=== PATIENT | female | born 1945 | race Caucasian/White ===

== ENCOUNTER 2018-09-15 16:56 | Emergency (ER) | payer MEDICARE, MEDICAID ==
[~2018-09-15] VITALS: Ht 147.3 cm; Wt 85.0 kg
[2018-09-15] MEDS ORDERED: VITAD1000 PO (17:16)
[2018-09-15] MEDS ORDERED: SERT50TA12 PO (17:16)
[2018-09-15] MEDS ORDERED: INDA2.5 PO (17:16)
[2018-09-15] MEDS ORDERED: FOLI1 PO (17:16)
[2018-09-15] MEDS ORDERED: KDUR20 PO (17:16)
[2018-09-15] MEDS ORDERED: METH2.5 PO (17:16)
[2018-09-15] MEDS ORDERED: CELE100 PO (17:16)
[2018-09-15] MEDS ORDERED: ASPI81 PO (17:16)
[2018-09-15 17:42] LABS: BASOPHILS % (AUTO) 1.4 % (0.0-2.0); EOSINOPHILS % (AUTO) 3.9 % (1.0-6.0); HEMATOCRIT 41.4 % (36-46); HEMOGLOBIN 13.9 g/dL (12.0-16.0); LYMPHOCYTES # (AUTO) 0.9 K/uL (1.0-4.8); LYMPHOCYTES % (AUTO) 15.2 % (22.0-44.0); MEAN CORPUSCULAR HEMOGLOBIN 26.6 pg (26.0-34.0); MEAN CORPUSCULAR HGB CONC 33.5 G/dL (31.0-37.0); MEAN CORPUSCULAR VOLUME 80 fL (80-100); MONOCYTES # (AUTO) 0.7 K/uL (0.1-1.0); MONOCYTES % (AUTO) 11.3 % (2.0-9.0); NEUTROPHILS # (AUTO) 4.1 K/uL (1.8-7.7); NEUTROPHILS % (AUTO) 68.2 % (40.0-70.0); PLATELET COUNT (AUTO) 191 K/uL (150-450); RED BLOOD CELL COUNT(AUTO) 5.21 MIL/uL (4.00-5.20)
[2018-09-15 18:00] LABS: ALANINE AMINOTRANSFERASE 25 U/L (12-78); ALBUMIN 3.9 g/dL (3.4-5.0); ALKALINE PHOSPHATASE 100 U/L (46-116); AMYLASE 33 U/L (25-115); ANION GAP 6 mmol/L (8-16); ASPARTATE AMINOTRANSFERASE 26 U/L (15-37); BILIRUBIN,TOTAL 0.5 mg/dL (0.1-1.0); CARBON DIOXIDE 33 mmol/L (22-29); CHLORIDE 103 mmol/L (98-107); CREATININE 0.62 mg/dL (0.60-1.30); GLOMERULAR FILTR. RATE CALC > 60 mL/min (>60); GLUCOSE,RANDOM 97 mg/dL (70-110); LIPASE 102 U/L (73-393); POTASSIUM 3.2 mmol/L (3.5-5.1); SODIUM SERUM 142 mmol/L (136-145); TOTAL PROTEIN, SERUM 7.2 g/dL (6.4-8.2)
[2018-09-15 18:27] LABS: UREA NITROGEN, BLOOD 22 mg/dL (7-18)
[2018-09-15] MEDS: ACETAMINOPHEN 500 MG TABLET PO ONE ×2 (19:10→19:16)
[2018-09-15 19:54] VITALS: BP 138/71
== END 2018-09-15 20:41 | disposition home or self-care (01) ==
LOC: EMS 17:00
DX: S39.012A Strain of muscle, fascia and tendon of lower back, initial encounter (principal); S80.01XA Contusion of right knee, initial encounter; S30.0XXA Contusion of lower back and pelvis, initial encounter; M13.862 Other specified arthritis, left knee; M13.861 Other specified arthritis, right knee; G89.29 Other chronic pain; I10 Essential (primary) hypertension; Z88.0 Allergy status to penicillin; Z88.8 Allergy status to other drugs, medicaments and biological substances; Z91.040 Latex allergy status; Z79.82 Long term (current) use of aspirin; V09.9XXA Pedestrian injured in unspecified transport accident, initial encounter; Y93.89 Activity, other specified; Y92.89 Other specified places as the place of occurrence of the external cause; Y99.8 Other external cause status
CPT/HCPCS: 72100; 72170; 72220

== ENCOUNTER 2020-07-31 18:37 | Inpatient (IN) | payer MEDICARE, MEDICAID ==
[~2020-07-31] VITALS: Ht 147.3 cm; Wt 76.9 kg
[~2020-07-31 18:37] MED LIST: ASPI-1450 PO; CELE100 PO; CHOL100018 PO; FOLI-130 PO; INDA2.5 PO; METH2.5 PO; POTA20TA83 PO; SERT-158 PO
[2020-07-31] MEDS ORDERED: IOVERSOL 320 MG/ML 100 ML VIAL ONE (21:29)
[2020-07-31] MEDS ORDERED: SODIUM CHLORIDE 0.9% 100 ML ONE (21:29)
[2020-07-31 21:58] LABS: BASOPHILS % (AUTO) 0.9 % (0.0-2.0); EOSINOPHILS % (AUTO) 1.4 % (1.0-6.0); HEMATOCRIT 40.5 % (36-46); HEMOGLOBIN 13.2 g/dL (12.0-16.0); LYMPHOCYTES # (AUTO) 1.1 K/uL (1.0-4.8); MEAN CORPUSCULAR HEMOGLOBIN 26.4 pg (26.0-34.0); MEAN CORPUSCULAR HGB CONC 32.5 G/dL (31.0-37.0); MEAN CORPUSCULAR VOLUME 81 fL (80-100); MONOCYTES # (AUTO) 0.6 K/uL (0.1-1.0); MONOCYTES % (AUTO) 13.8 % (2.0-9.0); NEUTROPHILS # (AUTO) 2.5 K/uL (1.8-7.7); NEUTROPHILS % (AUTO) 58.9 % (40.0-70.0); PLATELET COUNT (AUTO) 160 K/uL (150-450); RED CELL DISTRIBUTION WIDTH 17.1 % (11.5-14.5)
[2020-07-31 22:12] LABS: INR 1.2 (0.9-1.1); PROTHROMBIN TIME 12.7 SEC (9.4-11.6)
[2020-07-31 22:13] LABS: ALANINE AMINOTRANSFERASE 38 U/L (12-78); ALBUMIN 3.7 g/dL (3.4-5.0); ALKALINE PHOSPHATASE 93 U/L (46-116); ANION GAP 8 mmol/L (8-16); ASPARTATE AMINOTRANSFERASE 38 U/L (15-37); BILIRUBIN,TOTAL 0.7 mg/dL (0.1-1.0); CALCIUM, TOTAL 9.6 mg/dL (8.8-10.5); CARBON DIOXIDE 32 mmol/L (22-29); CHLORIDE 105 mmol/L (98-107); CREATININE 0.56 mg/dL (0.60-1.30); GLUCOSE,RANDOM 89 mg/dL (70-110); SODIUM SERUM 145 mmol/L (136-145); TOTAL PROTEIN, SERUM 7.2 g/dL (6.4-8.2); UREA NITROGEN, BLOOD 16 mg/dL (7-18)
[2020-07-31 22:14] LABS: GLOMERULAR FILTR. RATE CALC > 60 mL/min (>60)
[2020-07-31 22:20] LABS: B-TYPE NATRIURETIC PEPTIDE 27 pg/mL (0-100)
[2020-07-31] MEDS ORDERED: POTASSIUM CHLORIDE 10% 40 MEQ/30 ML LIQUID UDCUP PO ONE (22:45)
[2020-07-31] MEDS ORDERED: VANCOMYCIN HCL 1 GM/D5% WATER 200 ML IV ONE (22:45)
[2020-07-31] MEDS ORDERED: 0.9% SODIUM CHLORIDE 10 ML SYRINGE IVP PRN (22:45)
[2020-07-31] MEDS ORDERED: ACETAMINOPHEN 325 MG TABLET PO PRN (22:45)
[2020-07-31] MEDS ORDERED: ONDANSETRON HCL 4 MG/2 ML VIAL IVP PRN ×2 (22:45→23:00)
[2020-07-31] MEDS ORDERED: POTASSIUM CHLORIDE 20 MEQ ER TABLET PO PRN (23:00)
[2020-07-31] MEDS ORDERED: ZOLPIDEM TARTRATE 5 MG TABLET PO PRN (23:00)
[2020-07-31] MEDS ORDERED: BISACODYL 10 MG RECTAL RECTAL SUPPOSITORY PR PRN (23:00)
[2020-07-31] MEDS ORDERED: POTASSIUM CHL 10 MEQ/WATER 50 ML IV PRN (23:00)
[2020-07-31] MEDS ORDERED: MAGNESIUM HYDROXIDE SUSPENSION 30 ML UDCUP PO PRN (23:00)
[2020-07-31] MEDS ORDERED: HYDROCODONE/ACETAMINOPHEN 5-325 MG TABLET PO PRN (23:00)
[2020-07-31] MEDS ORDERED: MORPHINE SULFATE 2 MG/ML SYRINGE IVP PRN (23:00)
[2020-07-31] MEDS ORDERED: IOVERSOL 350 MG/ML 100 ML VIAL ONE (23:34)
[2020-08-01] MEDS: HEPARIN SODIUM,PORCINE 5,000 UNITS/ML VIAL SQ SCH ×4 (00:55→23:03)
[2020-08-01 01:20] LABS: COVID AG,FIA SOURCE NASOPHARYNGEAL
[2020-08-01 02:09] VITALS: BP 131/72
[2020-08-01 04:12] VITALS: BP 109/68
[2020-08-01 06:07] LABS: BASOPHILS % (AUTO) 1.7 % (0.0-2.0); EOSINOPHILS % (AUTO) 2.8 % (1.0-6.0); HEMATOCRIT 37.9 % (36-46); HEMOGLOBIN 12.1 g/dL (12.0-16.0); LYMPHOCYTES # (AUTO) 0.9 K/uL (1.0-4.8); LYMPHOCYTES % (AUTO) 28.8 % (22.0-44.0); MEAN CORPUSCULAR HEMOGLOBIN 26.6 pg (26.0-34.0); MEAN CORPUSCULAR HGB CONC 31.9 G/dL (31.0-37.0); MEAN CORPUSCULAR VOLUME 83 fL (80-100); MONOCYTES # (AUTO) 0.5 K/uL (0.1-1.0); MONOCYTES % (AUTO) 15.4 % (2.0-9.0); NEUTROPHILS # (AUTO) 1.7 K/uL (1.8-7.7); NEUTROPHILS % (AUTO) 51.3 % (40.0-70.0); PLATELET COUNT (AUTO) 135 K/uL (150-450); RED BLOOD CELL COUNT(AUTO) 4.56 MIL/uL (4.00-5.20); RED CELL DISTRIBUTION WIDTH 17.3 % (11.5-14.5)
[2020-08-01] MEDS ORDERED: SODIUM CHLORIDE 0.9% 500 ML IV ONE ×2 (06:07→06:09)
[2020-08-01 06:48] LABS: ANION GAP 8 mmol/L (8-16); CALCIUM, TOTAL 9.3 mg/dL (8.8-10.5); CARBON DIOXIDE 30 mmol/L (22-29); CHLORIDE 106 mmol/L (98-107); CREATININE 0.43 mg/dL (0.60-1.30); GLUCOSE,RANDOM 101 mg/dL (70-110); POTASSIUM 3.2 mmol/L (3.5-5.1); SODIUM SERUM 144 mmol/L (136-145); UREA NITROGEN, BLOOD 11 mg/dL (7-18)
[2020-08-01 06:49] LABS: GLOMERULAR FILTR. RATE CALC > 60 mL/min (>60)
[2020-08-01] MEDS ORDERED: VANCOMYCIN HCL 750 MG in DEXTROSE 5%-WATER 250 ML IV SCH (07:00)
[2020-08-01 07:30] VITALS: BP 116/66
[2020-08-01] MEDS: ACETAMINOPHEN 325 MG TABLET PO PRN (08:38)
[2020-08-01] MEDS: INDAPAMIDE 2.5 MG TAB PO SCH (08:38)
[2020-08-01] MEDS: PANTOPRAZOLE SODIUM 40 MG DR TABLET PO SCH (08:39)
[2020-08-01] MEDS: CHOLECALCIFEROL (VIT D3) 1,000 UNITS [25 MCG] TABLET PO SCH (08:39)
[2020-08-01] MEDS: FOLIC ACID 1 MG TABLET PO SCH (08:39)
[2020-08-01] MEDS: ASPIRIN 81 MG CHEWABLE TABLET PO SCH (08:39)
[2020-08-01] MEDS: DOCUSATE SODIUM 100 MG CAPSULE PO SCH ×3 (08:39→20:26)
[2020-08-01] MEDS: METHOTREXATE SODIUM 2.5 MG TABLET PO SCH (08:40)
[2020-08-01] MEDS: SERTRALINE HCL 50 MG TABLET PO SCH (08:40)
[2020-08-01] MEDS: POTASSIUM CHLORIDE 20 MEQ ER TABLET PO SCH (08:40)
[2020-08-01] MEDS: CELECOXIB 100 MG CAPSULE PO SCH (08:41)
[2020-08-01] MEDS ORDERED: MAGNESIUM SULFATE 2 GM/WATER 50 ML IV PRN (10:15)
[2020-08-01] MEDS ORDERED: MAGNESIUM SULFATE 4 GM/WATER 100 ML IV PRN (10:15)
[2020-08-01 13:22] LABS: ALBUMIN 3.4 g/dL (3.4-5.0); MAGNESIUM 1.7 mg/dL (1.80-2.40); POTASSIUM 4.1 mmol/L (3.5-5.1)
[2020-08-01 15:04] VITALS: BP 134/78
[2020-08-01] MEDS: VANCOMYCIN HCL 1 GM/D5% WATER 200 ML IV SCH ×3 (15:10→23:02)
[2020-08-01 20:06] VITALS: BP 139/68
[2020-08-02 00:07] VITALS: BP 130/74
[2020-08-02] MEDS: VANCOMYCIN HCL 1 GM/D5% WATER 200 ML IV SCH ×3 (00:15→16:22)
[2020-08-02 04:46] VITALS: BP 139/75
[2020-08-02 06:07] LABS: EOSINOPHILS % (AUTO) 4.7 % (1.0-6.0); HEMATOCRIT 36.1 % (36-46); HEMOGLOBIN 12.4 g/dL (12.0-16.0); LYMPHOCYTES # (AUTO) 1.2 K/uL (1.0-4.8); LYMPHOCYTES % (AUTO) 27.1 % (22.0-44.0); MEAN CORPUSCULAR HGB CONC 34.2 G/dL (31.0-37.0); MEAN CORPUSCULAR VOLUME 79 fL (80-100); MONOCYTES # (AUTO) 0.8 K/uL (0.1-1.0); MONOCYTES % (AUTO) 16.9 % (2.0-9.0); NEUTROPHILS # (AUTO) 2.3 K/uL (1.8-7.7); NEUTROPHILS % (AUTO) 50.3 % (40.0-70.0); PLATELET COUNT (AUTO) 137 K/uL (150-450); RED BLOOD CELL COUNT(AUTO) 4.58 MIL/uL (4.00-5.20); RED CELL DISTRIBUTION WIDTH 17.2 % (11.5-14.5)
[2020-08-02 06:20] LABS: ANION GAP 7 mmol/L (8-16); CALCIUM, TOTAL 9.2 mg/dL (8.8-10.5); CARBON DIOXIDE 32 mmol/L (22-29); CHLORIDE 106 mmol/L (98-107); CREATININE 0.55 mg/dL (0.60-1.30); GLUCOSE,RANDOM 101 mg/dL (70-110); POTASSIUM 3.5 mmol/L (3.5-5.1); SODIUM SERUM 145 mmol/L (136-145); UREA NITROGEN, BLOOD 15 mg/dL (7-18)
[2020-08-02 06:49] LABS: GLOMERULAR FILTR. RATE CALC > 60 mL/min (>60)
[2020-08-02 08:13] VITALS: BP 118/74
[2020-08-02] MEDS: HEPARIN SODIUM,PORCINE 5,000 UNITS/ML VIAL SQ SCH ×3 (08:32→23:59)
[2020-08-02] MEDS: INDAPAMIDE 2.5 MG TAB PO SCH (08:32)
[2020-08-02] MEDS: FOLIC ACID 1 MG TABLET PO SCH (08:33)
[2020-08-02] MEDS: SERTRALINE HCL 50 MG TABLET PO SCH (08:33)
[2020-08-02] MEDS: PANTOPRAZOLE SODIUM 40 MG DR TABLET PO SCH (08:33)
[2020-08-02] MEDS: CHOLECALCIFEROL (VIT D3) 1,000 UNITS [25 MCG] TABLET PO SCH (08:33)
[2020-08-02] MEDS: ASPIRIN 81 MG CHEWABLE TABLET PO SCH (08:33)
[2020-08-02] MEDS: CELECOXIB 100 MG CAPSULE PO SCH (08:34)
[2020-08-02] MEDS: METHOTREXATE SODIUM 2.5 MG TABLET PO SCH (08:34)
[2020-08-02] MEDS: DOCUSATE SODIUM 100 MG CAPSULE PO SCH ×2 (08:36→20:47)
[2020-08-02] MEDS: POTASSIUM CHLORIDE 20 MEQ ER TABLET PO SCH (09:32)
[2020-08-02] MEDS: MAGNESIUM OXIDE 400 MG TABLET PO PRN ×3 (12:26→20:48)
[2020-08-02] MEDS: CLINDAMYCIN 600 MG/D5% WATER 50 ML IV SCH ×2 (15:22→22:50)
[2020-08-02 15:51] VITALS: BP 118/70
[2020-08-02 20:03] VITALS: BP 114/74
[2020-08-02] MEDS: ACETAMINOPHEN 325 MG TABLET PO PRN (20:48)
[2020-08-03] MEDS: VANCOMYCIN HCL 1 GM/D5% WATER 200 ML IV SCH ×4 (00:32→10:32)
[2020-08-03 04:51] VITALS: BP 143/74
[2020-08-03] MEDS: CLINDAMYCIN 600 MG/D5% WATER 50 ML IV SCH ×3 (06:02→23:00)
[2020-08-03 07:03] LABS: ANION GAP 7 mmol/L (8-16); CALCIUM, TOTAL 9.7 mg/dL (8.8-10.5); CARBON DIOXIDE 31 mmol/L (22-29); CHLORIDE 106 mmol/L (98-107); CREATININE 0.45 mg/dL (0.60-1.30); GLOMERULAR FILTR. RATE CALC > 60 mL/min (>60); GLUCOSE,RANDOM 99 mg/dL (70-110); SODIUM SERUM 144 mmol/L (136-145); UREA NITROGEN, BLOOD 22 mg/dL (7-18)
[2020-08-03 07:14] LABS: HEMATOCRIT 35.4 % (36-46); LYMPHOCYTES # (AUTO) 1.1 K/uL (1.0-4.8); LYMPHOCYTES % (AUTO) 24.2 % (22.0-44.0); MEAN CORPUSCULAR HEMOGLOBIN 26.8 pg (26.0-34.0); MEAN CORPUSCULAR HGB CONC 33.8 G/dL (31.0-37.0); MEAN CORPUSCULAR VOLUME 79 fL (80-100); MONOCYTES # (AUTO) 0.6 K/uL (0.1-1.0); MONOCYTES % (AUTO) 12.5 % (2.0-9.0); NEUTROPHILS # (AUTO) 2.6 K/uL (1.8-7.7); NEUTROPHILS % (AUTO) 58.3 % (40.0-70.0); PLATELET COUNT (AUTO) 143 K/uL (150-450); RED BLOOD CELL COUNT(AUTO) 4.45 MIL/uL (4.00-5.20); RED CELL DISTRIBUTION WIDTH 17.2 % (11.5-14.5)
[2020-08-03 07:30] VITALS: BP 131/75
[2020-08-03] MEDS: INDAPAMIDE 2.5 MG TAB PO SCH (08:55)
[2020-08-03] MEDS: POTASSIUM CHLORIDE 20 MEQ ER TABLET PO SCH (08:56)
[2020-08-03] MEDS: CHOLECALCIFEROL (VIT D3) 1,000 UNITS [25 MCG] TABLET PO SCH (08:56)
[2020-08-03] MEDS: ASPIRIN 81 MG CHEWABLE TABLET PO SCH (08:56)
[2020-08-03] MEDS: HEPARIN SODIUM,PORCINE 5,000 UNITS/ML VIAL SQ SCH ×3 (08:56→23:19)
[2020-08-03] MEDS: DOCUSATE SODIUM 100 MG CAPSULE PO SCH ×2 (08:56→20:17)
[2020-08-03] MEDS: FOLIC ACID 1 MG TABLET PO SCH (08:56)
[2020-08-03] MEDS: SERTRALINE HCL 50 MG TABLET PO SCH (08:57)
[2020-08-03] MEDS: PANTOPRAZOLE SODIUM 40 MG DR TABLET PO SCH ×2 (08:57→09:04)
[2020-08-03] MEDS: CELECOXIB 100 MG CAPSULE PO SCH (08:57)
[2020-08-03] MEDS: METHOTREXATE SODIUM 2.5 MG TABLET PO SCH (08:57)
[2020-08-03] MEDS: ACETAMINOPHEN 325 MG TABLET PO PRN ×2 (08:58→20:18)
[2020-08-03] MEDS ORDERED: LEVO-72 PO (12:39)
[2020-08-03] MEDS ORDERED: CLIN300C3 PO (12:39)
[2020-08-03 12:42] LABS: GLUCOMETER DEV NAME(LOC) 6N.1; GLUCOSE,POINT OF CARE 110 MG/DL (70-110)
[2020-08-03] MEDS ORDERED: TRAM50TA4 PO (12:42)
[2020-08-03] MEDS: VANCOMYCIN HCL 750 MG in DEXTROSE 5%-WATER 250 ML IV SCH ×2 (15:46→23:02)
[2020-08-03] MEDS: CLINDAMYCIN HCL 300 MG CAPSULE PO SCH ×2 (18:14→20:16)
[2020-08-03 20:15] VITALS: BP 127/72
[2020-08-04 00:21] VITALS: BP 134/69
[2020-08-04 05:02] VITALS: BP 136/86
[2020-08-04] MEDS: CLINDAMYCIN 600 MG/D5% WATER 50 ML IV SCH (05:46)
[2020-08-04] MEDS: VANCOMYCIN HCL 750 MG in DEXTROSE 5%-WATER 250 ML IV SCH (08:00)
[2020-08-04] MEDS: INDAPAMIDE 2.5 MG TAB PO SCH (08:46)
[2020-08-04] MEDS: METHOTREXATE SODIUM 2.5 MG TABLET PO SCH (08:47)
[2020-08-04] MEDS: HEPARIN SODIUM,PORCINE 5,000 UNITS/ML VIAL SQ SCH (08:47)
[2020-08-04] MEDS: SERTRALINE HCL 50 MG TABLET PO SCH (08:47)
[2020-08-04] MEDS: LEVOFLOXACIN 500 MG TABLET PO SCH ×2 (08:47→09:00)
[2020-08-04] MEDS: FOLIC ACID 1 MG TABLET PO SCH (08:47)
[2020-08-04] MEDS: ASPIRIN 81 MG CHEWABLE TABLET PO SCH (08:47)
[2020-08-04] MEDS: CHOLECALCIFEROL (VIT D3) 1,000 UNITS [25 MCG] TABLET PO SCH (08:47)
[2020-08-04] MEDS: PANTOPRAZOLE SODIUM 40 MG DR TABLET PO SCH (08:47)
[2020-08-04] MEDS: POTASSIUM CHLORIDE 20 MEQ ER TABLET PO SCH (08:47)
[2020-08-04] MEDS: CELECOXIB 100 MG CAPSULE PO SCH (08:47)
[2020-08-04] MEDS: CLINDAMYCIN HCL 300 MG CAPSULE PO SCH (08:48)
[2020-08-04] MEDS: DOCUSATE SODIUM 100 MG CAPSULE PO SCH (08:48)
[2020-08-04 08:53] LABS: ANION GAP 7 mmol/L (8-16); CALCIUM, TOTAL 9.4 mg/dL (8.8-10.5); CARBON DIOXIDE 31 mmol/L (22-29); CHLORIDE 106 mmol/L (98-107); GLUCOSE,RANDOM 98 mg/dL (70-110); POTASSIUM 3.5 mmol/L (3.5-5.1); SODIUM SERUM 144 mmol/L (136-145); UREA NITROGEN, BLOOD 20 mg/dL (7-18)
[2020-08-04 08:54] VITALS: BP 130/68
[2020-08-04 09:02] LABS: GLOMERULAR FILTR. RATE CALC > 60 mL/min (>60)
[2020-08-04] MEDS ORDERED: CIPR-278 PO (11:15)
[2020-08-04] MEDS ORDERED: GABA-1216 PO (11:46)
== END 2020-08-04 14:00 | disposition home or self-care (01) | DRG 603 ==
LOC: EMS 18:37 → 6N 22:49
PROVIDERS: ADMIT Internal Medicine; ATTEND Internal Medicine
DX: L03.116 Cellulitis of left lower limb (principal); E87.3 Alkalosis; D72.819 Decreased white blood cell count, unspecified; E87.6 Hypokalemia; D64.9 Anemia, unspecified; S99.922A Unspecified injury of left foot, initial encounter; Z20.822 Contact with and (suspected) exposure to COVID-19; E83.42 Hypomagnesemia; I10 Essential (primary) hypertension; Z86.718 Personal history of other venous thrombosis and embolism; Z88.0 Allergy status to penicillin; Z88.8 Allergy status to other drugs, medicaments and biological substances; Z91.040 Latex allergy status; W20.8XXA Other cause of strike by thrown, projected or falling object, initial encounter; Y93.89 Activity, other specified; Y92.89 Other specified places as the place of occurrence of the external cause; Y99.8 Other external cause status
CPT/HCPCS: 73701; 83605; 83735; 84132; 87040; 87426; 93005; 99285; J1644; J3370; J3490; J7040; J7050; J7060; J8610

== ENCOUNTER → 2020-08-13 | Outpatient (CLI) | payer MEDICARE, MEDICAID ==
[~2020-08-13] MED LIST changes: +CIPR-278 PO; +CLIN300C3 PO; +GABA-1216 PO; +TRAM50TA4 PO
== END | disposition home or self-care (01) ==
LOC: HBOWC 10:26
PROVIDERS: ATTEND Nurse Practitioner Adult Health
DX: S91.002A Unspecified open wound, left ankle, initial encounter (principal); L97.821 Non-pressure chronic ulcer of other part of left lower leg limited to breakdown of skin; L40.59 Other psoriatic arthropathy; M45.9 Ankylosing spondylitis of unspecified sites in spine; I10 Essential (primary) hypertension; E78.5 Hyperlipidemia, unspecified; M12.572 Traumatic arthropathy, left ankle and foot; F32.9 Major depressive disorder, single episode, unspecified; Z86.718 Personal history of other venous thrombosis and embolism; Z79.82 Long term (current) use of aspirin; Z79.899 Other long term (current) drug therapy; Z90.49 Acquired absence of other specified parts of digestive tract; Z90.89 Acquired absence of other organs; W22.8XXA Striking against or struck by other objects, initial encounter; Y93.89 Activity, other specified; Y92.89 Other specified places as the place of occurrence of the external cause; Y99.8 Other external cause status
CPT/HCPCS: 99205; 99214; 99215

== ENCOUNTER → 2020-08-20 | Outpatient (CLI) | payer MEDICARE, MEDICAID | END | disposition home or self-care (01) | LOC: HBOWC 08:38 | PROVIDERS: ATTEND Nurse Practitioner Adult Health | DX: S91.002D Unspecified open wound, left ankle, subsequent encounter (principal); L97.821 Non-pressure chronic ulcer of other part of left lower leg limited to breakdown of skin; M12.572 Traumatic arthropathy, left ankle and foot; I10 Essential (primary) hypertension; L40.59 Other psoriatic arthropathy; E78.5 Hyperlipidemia, unspecified; M45.9 Ankylosing spondylitis of unspecified sites in spine; F32.9 Major depressive disorder, single episode, unspecified; Z79.82 Long term (current) use of aspirin; Z79.899 Other long term (current) drug therapy; W22.8XXD Striking against or struck by other objects, subsequent encounter | CPT/HCPCS: 99214 ==

== ENCOUNTER → 2020-08-27 | Outpatient (CLI) | payer MEDICARE, MEDICAID | END | disposition home or self-care (01) | LOC: HBOWC 09:17 | PROVIDERS: ATTEND Nurse Practitioner Adult Health | DX: S91.002D Unspecified open wound, left ankle, subsequent encounter (principal); L97.821 Non-pressure chronic ulcer of other part of left lower leg limited to breakdown of skin; L40.59 Other psoriatic arthropathy; M45.9 Ankylosing spondylitis of unspecified sites in spine; I10 Essential (primary) hypertension; E78.5 Hyperlipidemia, unspecified; M12.572 Traumatic arthropathy, left ankle and foot; F32.9 Major depressive disorder, single episode, unspecified; Z86.718 Personal history of other venous thrombosis and embolism; Z79.82 Long term (current) use of aspirin; Z79.899 Other long term (current) drug therapy; Z90.89 Acquired absence of other organs; Z90.49 Acquired absence of other specified parts of digestive tract; W22.8XXD Striking against or struck by other objects, subsequent encounter | CPT/HCPCS: 99214 ==

== ENCOUNTER → 2020-09-10 | Outpatient (CLI) | payer MEDICARE, MEDICAID | END | disposition home or self-care (01) | LOC: HBOWC 09:28 | PROVIDERS: ATTEND Nurse Practitioner Adult Health | DX: S91.002D Unspecified open wound, left ankle, subsequent encounter (principal); L97.821 Non-pressure chronic ulcer of other part of left lower leg limited to breakdown of skin; M12.572 Traumatic arthropathy, left ankle and foot; L40.50 Arthropathic psoriasis, unspecified; I10 Essential (primary) hypertension; E78.5 Hyperlipidemia, unspecified; M45.9 Ankylosing spondylitis of unspecified sites in spine; E55.9 Vitamin D deficiency, unspecified; F32.9 Major depressive disorder, single episode, unspecified; Z86.718 Personal history of other venous thrombosis and embolism; Z79.82 Long term (current) use of aspirin; Z79.899 Other long term (current) drug therapy; Z90.89 Acquired absence of other organs; Z90.49 Acquired absence of other specified parts of digestive tract; W22.8XXD Striking against or struck by other objects, subsequent encounter | CPT/HCPCS: 99214 ==

== ENCOUNTER → 2020-10-01 | Outpatient (CLI) | payer MEDICARE, MEDICAID | END | disposition home or self-care (01) | LOC: HBOWC 09:22 | PROVIDERS: ATTEND Nurse Practitioner Adult Health | DX: S91.002D Unspecified open wound, left ankle, subsequent encounter (principal); L97.821 Non-pressure chronic ulcer of other part of left lower leg limited to breakdown of skin; L40.59 Other psoriatic arthropathy; M45.9 Ankylosing spondylitis of unspecified sites in spine; I10 Essential (primary) hypertension; E78.5 Hyperlipidemia, unspecified; M12.572 Traumatic arthropathy, left ankle and foot; F43.10 Post-traumatic stress disorder, unspecified; F32.9 Major depressive disorder, single episode, unspecified; Z86.718 Personal history of other venous thrombosis and embolism; Z79.82 Long term (current) use of aspirin; Z79.899 Other long term (current) drug therapy; Z90.89 Acquired absence of other organs; Z90.49 Acquired absence of other specified parts of digestive tract; Z88.0 Allergy status to penicillin; Z88.8 Allergy status to other drugs, medicaments and biological substances; Z20.822 Contact with and (suspected) exposure to COVID-19; Z91.040 Latex allergy status; W22.8XXD Striking against or struck by other objects, subsequent encounter | CPT/HCPCS: 99214; G0463; Z7500 ==

== ENCOUNTER → 2020-10-08 | Outpatient (CLI) | payer MEDICARE, MEDICAID | END | disposition home or self-care (01) | LOC: HBOWC 08:55 | PROVIDERS: ATTEND Nurse Practitioner Adult Health | DX: S91.002D Unspecified open wound, left ankle, subsequent encounter (principal); L40.59 Other psoriatic arthropathy; L97.821 Non-pressure chronic ulcer of other part of left lower leg limited to breakdown of skin; M45.9 Ankylosing spondylitis of unspecified sites in spine; I10 Essential (primary) hypertension; E78.5 Hyperlipidemia, unspecified; M12.572 Traumatic arthropathy, left ankle and foot; F43.10 Post-traumatic stress disorder, unspecified; F32.9 Major depressive disorder, single episode, unspecified; Z86.718 Personal history of other venous thrombosis and embolism; Z79.82 Long term (current) use of aspirin; Z79.899 Other long term (current) drug therapy; Z90.89 Acquired absence of other organs; Z90.49 Acquired absence of other specified parts of digestive tract; Z88.0 Allergy status to penicillin; Z88.8 Allergy status to other drugs, medicaments and biological substances; Z20.822 Contact with and (suspected) exposure to COVID-19; Z91.040 Latex allergy status; W22.8XXD Striking against or struck by other objects, subsequent encounter | CPT/HCPCS: 99215 ==

== ENCOUNTER → 2020-10-15 | Outpatient (CLI) | payer MEDICARE, MEDICAID ==
[~2020-10-15] MED LIST changes: +TRIAMCINOLONE 0.1% 15 GM CREAM TP ONE
== END | disposition home or self-care (01) ==
LOC: HBOWC 13:00
PROVIDERS: ATTEND Nurse Practitioner Adult Health
DX: S91.002D Unspecified open wound, left ankle, subsequent encounter (principal); L97.821 Non-pressure chronic ulcer of other part of left lower leg limited to breakdown of skin; L40.59 Other psoriatic arthropathy; M45.9 Ankylosing spondylitis of unspecified sites in spine; I10 Essential (primary) hypertension; E78.5 Hyperlipidemia, unspecified; M12.572 Traumatic arthropathy, left ankle and foot; F43.10 Post-traumatic stress disorder, unspecified; F32.9 Major depressive disorder, single episode, unspecified; Z86.718 Personal history of other venous thrombosis and embolism; Z79.82 Long term (current) use of aspirin; Z79.899 Other long term (current) drug therapy; Z90.89 Acquired absence of other organs; Z90.49 Acquired absence of other specified parts of digestive tract; Z88.0 Allergy status to penicillin; Z88.8 Allergy status to other drugs, medicaments and biological substances; Z20.822 Contact with and (suspected) exposure to COVID-19; Z91.040 Latex allergy status; W22.8XXD Striking against or struck by other objects, subsequent encounter
CPT/HCPCS: 99214

== ENCOUNTER → 2020-10-22 | Outpatient (CLI) | payer MEDICARE, MEDICAID ==
[~2020-10-22] MED LIST changes: -TRIAMCINOLONE 0.1% 15 GM CREAM TP ONE
== END | disposition home or self-care (01) ==
LOC: HBOWC 09:10
PROVIDERS: ATTEND Nurse Practitioner Adult Health
DX: S91.002D Unspecified open wound, left ankle, subsequent encounter (principal); L97.821 Non-pressure chronic ulcer of other part of left lower leg limited to breakdown of skin; L40.59 Other psoriatic arthropathy; M45.9 Ankylosing spondylitis of unspecified sites in spine; I10 Essential (primary) hypertension; E78.5 Hyperlipidemia, unspecified; M12.572 Traumatic arthropathy, left ankle and foot; F43.10 Post-traumatic stress disorder, unspecified; F32.9 Major depressive disorder, single episode, unspecified; Z86.718 Personal history of other venous thrombosis and embolism; Z79.82 Long term (current) use of aspirin; Z79.899 Other long term (current) drug therapy; Z90.89 Acquired absence of other organs; Z90.49 Acquired absence of other specified parts of digestive tract; Z88.0 Allergy status to penicillin; Z88.8 Allergy status to other drugs, medicaments and biological substances; Z20.822 Contact with and (suspected) exposure to COVID-19; Z91.040 Latex allergy status; W22.8XXD Striking against or struck by other objects, subsequent encounter
CPT/HCPCS: G0463

== ENCOUNTER → 2020-10-29 | Outpatient (CLI) | payer MEDICARE, MEDICAID | END | disposition home or self-care (01) | LOC: HBOWC 09:19 | PROVIDERS: ATTEND Nurse Practitioner Adult Health | DX: S91.002D Unspecified open wound, left ankle, subsequent encounter (principal); L97.821 Non-pressure chronic ulcer of other part of left lower leg limited to breakdown of skin; L40.59 Other psoriatic arthropathy; M54.9 Dorsalgia, unspecified; I10 Essential (primary) hypertension; E78.5 Hyperlipidemia, unspecified; M12.572 Traumatic arthropathy, left ankle and foot; F43.10 Post-traumatic stress disorder, unspecified; F32.9 Major depressive disorder, single episode, unspecified; Z86.718 Personal history of other venous thrombosis and embolism; Z79.82 Long term (current) use of aspirin; Z79.899 Other long term (current) drug therapy; Z90.89 Acquired absence of other organs; Z90.49 Acquired absence of other specified parts of digestive tract; Z88.0 Allergy status to penicillin; Z91.040 Latex allergy status; Z88.8 Allergy status to other drugs, medicaments and biological substances; Z20.822 Contact with and (suspected) exposure to COVID-19; W22.8XXD Striking against or struck by other objects, subsequent encounter | CPT/HCPCS: G0463; Z7500 ==

== ENCOUNTER → 2020-11-05 | Outpatient (CLI) | payer MEDICARE, MEDICAID | END | disposition home or self-care (01) | LOC: HBOWC 08:56 | PROVIDERS: ATTEND Nurse Practitioner Adult Health | DX: S91.002D Unspecified open wound, left ankle, subsequent encounter (principal); L97.821 Non-pressure chronic ulcer of other part of left lower leg limited to breakdown of skin; L40.59 Other psoriatic arthropathy; M45.9 Ankylosing spondylitis of unspecified sites in spine; I10 Essential (primary) hypertension; E78.5 Hyperlipidemia, unspecified; M12.572 Traumatic arthropathy, left ankle and foot; F43.10 Post-traumatic stress disorder, unspecified; F32.9 Major depressive disorder, single episode, unspecified; Z86.718 Personal history of other venous thrombosis and embolism; Z79.82 Long term (current) use of aspirin; Z79.899 Other long term (current) drug therapy; Z90.89 Acquired absence of other organs; Z90.49 Acquired absence of other specified parts of digestive tract; Z88.0 Allergy status to penicillin; Z91.040 Latex allergy status; Z88.8 Allergy status to other drugs, medicaments and biological substances; Z20.822 Contact with and (suspected) exposure to COVID-19; W22.8XXD Striking against or struck by other objects, subsequent encounter | CPT/HCPCS: G0463; Z7500 ==

== ENCOUNTER → 2020-11-12 | Outpatient (CLI) | payer MEDICARE, MEDICAID | END | disposition home or self-care (01) | LOC: HBOWC 08:43 | PROVIDERS: ATTEND Nurse Practitioner Adult Health | DX: S91.002D Unspecified open wound, left ankle, subsequent encounter (principal); L97.821 Non-pressure chronic ulcer of other part of left lower leg limited to breakdown of skin; L40.59 Other psoriatic arthropathy; M45.9 Ankylosing spondylitis of unspecified sites in spine; I10 Essential (primary) hypertension; E78.5 Hyperlipidemia, unspecified; M12.572 Traumatic arthropathy, left ankle and foot; F43.10 Post-traumatic stress disorder, unspecified; F32.9 Major depressive disorder, single episode, unspecified; Z86.718 Personal history of other venous thrombosis and embolism; Z79.82 Long term (current) use of aspirin; Z79.899 Other long term (current) drug therapy; Z90.89 Acquired absence of other organs; Z90.49 Acquired absence of other specified parts of digestive tract; Z88.0 Allergy status to penicillin; Z91.040 Latex allergy status; Z88.8 Allergy status to other drugs, medicaments and biological substances; Z20.822 Contact with and (suspected) exposure to COVID-19; W22.8XXD Striking against or struck by other objects, subsequent encounter | CPT/HCPCS: G0463; Z7500 ==

== ENCOUNTER → 2020-11-19 | Outpatient (CLI) | payer MEDICARE, MEDICAID | END | disposition home or self-care (01) | LOC: HBOWC 09:28 | PROVIDERS: ATTEND Nurse Practitioner Adult Health | DX: S91.002D Unspecified open wound, left ankle, subsequent encounter (principal); L97.821 Non-pressure chronic ulcer of other part of left lower leg limited to breakdown of skin; L40.59 Other psoriatic arthropathy; M45.9 Ankylosing spondylitis of unspecified sites in spine; I10 Essential (primary) hypertension; E78.5 Hyperlipidemia, unspecified; M12.572 Traumatic arthropathy, left ankle and foot; F43.10 Post-traumatic stress disorder, unspecified; F32.9 Major depressive disorder, single episode, unspecified; Z86.718 Personal history of other venous thrombosis and embolism; Z79.82 Long term (current) use of aspirin; Z79.899 Other long term (current) drug therapy; Z90.89 Acquired absence of other organs; Z90.49 Acquired absence of other specified parts of digestive tract; Z88.0 Allergy status to penicillin; Z91.040 Latex allergy status; Z88.8 Allergy status to other drugs, medicaments and biological substances; Z20.822 Contact with and (suspected) exposure to COVID-19; W22.8XXD Striking against or struck by other objects, subsequent encounter | CPT/HCPCS: G0463; Z7500 ==

== ENCOUNTER → 2020-11-26 | Outpatient (CLI) | payer MEDICARE, MEDICAID | END | disposition home or self-care (01) | LOC: HBOWC 09:23 | PROVIDERS: ATTEND Nurse Practitioner Adult Health | DX: S91.002D Unspecified open wound, left ankle, subsequent encounter (principal); L97.821 Non-pressure chronic ulcer of other part of left lower leg limited to breakdown of skin; L40.59 Other psoriatic arthropathy; M45.9 Ankylosing spondylitis of unspecified sites in spine; I10 Essential (primary) hypertension; E78.5 Hyperlipidemia, unspecified; M12.572 Traumatic arthropathy, left ankle and foot; F43.10 Post-traumatic stress disorder, unspecified; F32.9 Major depressive disorder, single episode, unspecified; Z86.718 Personal history of other venous thrombosis and embolism; Z79.82 Long term (current) use of aspirin; Z79.899 Other long term (current) drug therapy; Z90.89 Acquired absence of other organs; Z90.49 Acquired absence of other specified parts of digestive tract; Z88.0 Allergy status to penicillin; Z91.040 Latex allergy status; Z88.8 Allergy status to other drugs, medicaments and biological substances; Z20.822 Contact with and (suspected) exposure to COVID-19; W22.8XXD Striking against or struck by other objects, subsequent encounter | CPT/HCPCS: G0463 ==

== ENCOUNTER → 2020-12-03 | Outpatient (CLI) | payer MEDICARE, MEDICAID | END | disposition home or self-care (01) | LOC: HBOWC 09:32 | PROVIDERS: ATTEND Nurse Practitioner Adult Health | DX: S81.802D Unspecified open wound, left lower leg, subsequent encounter (principal); L97.821 Non-pressure chronic ulcer of other part of left lower leg limited to breakdown of skin; M12.572 Traumatic arthropathy, left ankle and foot; L40.50 Arthropathic psoriasis, unspecified; M45.9 Ankylosing spondylitis of unspecified sites in spine; E78.5 Hyperlipidemia, unspecified; L03.116 Cellulitis of left lower limb; I10 Essential (primary) hypertension; F32.9 Major depressive disorder, single episode, unspecified; Z86.718 Personal history of other venous thrombosis and embolism; Z79.82 Long term (current) use of aspirin; Z79.899 Other long term (current) drug therapy; Z90.89 Acquired absence of other organs; Z90.49 Acquired absence of other specified parts of digestive tract; X58.XXXD Exposure to other specified factors, subsequent encounter | CPT/HCPCS: G0463; Z7500 ==

== ENCOUNTER → 2020-12-10 | Outpatient (CLI) | payer MEDICARE, MEDICAID | END | disposition home or self-care (01) | LOC: HBOWC 09:27 | PROVIDERS: ATTEND Nurse Practitioner Adult Health | DX: S91.002D Unspecified open wound, left ankle, subsequent encounter (principal); L97.821 Non-pressure chronic ulcer of other part of left lower leg limited to breakdown of skin; I10 Essential (primary) hypertension; E78.5 Hyperlipidemia, unspecified; L40.50 Arthropathic psoriasis, unspecified; M45.9 Ankylosing spondylitis of unspecified sites in spine; L40.59 Other psoriatic arthropathy; M12.572 Traumatic arthropathy, left ankle and foot; F32.9 Major depressive disorder, single episode, unspecified; Z79.82 Long term (current) use of aspirin; Z79.899 Other long term (current) drug therapy; Z90.89 Acquired absence of other organs; Z90.49 Acquired absence of other specified parts of digestive tract; Z86.718 Personal history of other venous thrombosis and embolism; W22.8XXD Striking against or struck by other objects, subsequent encounter | CPT/HCPCS: G0463; Z7500 ==

== ENCOUNTER → 2020-12-17 | Outpatient (CLI) | payer MEDICARE, MEDICAID | END | disposition home or self-care (01) | LOC: HBOWC 09:20 | PROVIDERS: ATTEND Nurse Practitioner Adult Health | DX: S91.002D Unspecified open wound, left ankle, subsequent encounter (principal); L97.821 Non-pressure chronic ulcer of other part of left lower leg limited to breakdown of skin; M12.572 Traumatic arthropathy, left ankle and foot; M45.9 Ankylosing spondylitis of unspecified sites in spine; I10 Essential (primary) hypertension; E78.5 Hyperlipidemia, unspecified; L40.50 Arthropathic psoriasis, unspecified; F32.9 Major depressive disorder, single episode, unspecified; Z79.82 Long term (current) use of aspirin; Z79.899 Other long term (current) drug therapy; Z90.89 Acquired absence of other organs; Z90.49 Acquired absence of other specified parts of digestive tract; Z86.718 Personal history of other venous thrombosis and embolism; W22.8XXD Striking against or struck by other objects, subsequent encounter | CPT/HCPCS: G0463; Z7500 ==

== ENCOUNTER → 2020-12-24 | Outpatient (CLI) | payer MEDICARE, MEDICAID ==
[~2020-12-24] MED LIST changes: +LIDOCAINE 4% 50 ML SOLUTION TP ONE
== END | disposition home or self-care (01) ==
LOC: HBOWC 09:23
PROVIDERS: ATTEND Nurse Practitioner Adult Health
DX: S91.002D Unspecified open wound, left ankle, subsequent encounter (principal); L97.821 Non-pressure chronic ulcer of other part of left lower leg limited to breakdown of skin; M12.572 Traumatic arthropathy, left ankle and foot; M45.9 Ankylosing spondylitis of unspecified sites in spine; I10 Essential (primary) hypertension; E78.5 Hyperlipidemia, unspecified; L40.59 Other psoriatic arthropathy; F43.10 Post-traumatic stress disorder, unspecified; F32.9 Major depressive disorder, single episode, unspecified; Z79.82 Long term (current) use of aspirin; Z79.899 Other long term (current) drug therapy; Z90.89 Acquired absence of other organs; Z90.49 Acquired absence of other specified parts of digestive tract; Z86.718 Personal history of other venous thrombosis and embolism; Z88.8 Allergy status to other drugs, medicaments and biological substances; Z88.0 Allergy status to penicillin; Z91.040 Latex allergy status; Z20.822 Contact with and (suspected) exposure to COVID-19; W22.8XXD Striking against or struck by other objects, subsequent encounter
CPT/HCPCS: G0463

== ENCOUNTER → 2020-12-30 | Outpatient (CLI) | payer MEDICARE, MEDICAID ==
[~2020-12-30] MED LIST changes: -LIDOCAINE 4% 50 ML SOLUTION TP ONE
== END | disposition home or self-care (01) ==
LOC: HBOWC 10:21
PROVIDERS: ATTEND Surgery Plastic and Reconstructive Surgery
DX: S91.002D Unspecified open wound, left ankle, subsequent encounter (principal); L97.821 Non-pressure chronic ulcer of other part of left lower leg limited to breakdown of skin; M12.572 Traumatic arthropathy, left ankle and foot; I10 Essential (primary) hypertension; M45.9 Ankylosing spondylitis of unspecified sites in spine; L40.50 Arthropathic psoriasis, unspecified; E78.5 Hyperlipidemia, unspecified; F32.9 Major depressive disorder, single episode, unspecified; Z90.89 Acquired absence of other organs; Z90.49 Acquired absence of other specified parts of digestive tract; Z86.718 Personal history of other venous thrombosis and embolism; W22.8XXD Striking against or struck by other objects, subsequent encounter
CPT/HCPCS: 11043; 11046; G0463

== ENCOUNTER → 2021-01-06 | Outpatient (CLI) | payer MEDICARE, MEDICAID | END | disposition home or self-care (01) | LOC: HBOWC 11:53 | PROVIDERS: ATTEND Surgery Plastic and Reconstructive Surgery | DX: L97.825 Non-pressure chronic ulcer of other part of left lower leg with muscle involvement without evidence of necrosis (principal); S91.002D Unspecified open wound, left ankle, subsequent encounter; M12.572 Traumatic arthropathy, left ankle and foot; E78.5 Hyperlipidemia, unspecified; I10 Essential (primary) hypertension; L40.50 Arthropathic psoriasis, unspecified; M45.9 Ankylosing spondylitis of unspecified sites in spine; Z79.82 Long term (current) use of aspirin; Z79.899 Other long term (current) drug therapy; X58.XXXD Exposure to other specified factors, subsequent encounter | CPT/HCPCS: 11043; 11046; G0463 ==

== ENCOUNTER → 2021-01-14 | Outpatient (CLI) | payer MEDICARE, MEDICAID | END | disposition home or self-care (01) | LOC: HBOWC 10:15 | PROVIDERS: ATTEND Nurse Practitioner Adult Health | DX: S91.002D Unspecified open wound, left ankle, subsequent encounter (principal); L97.821 Non-pressure chronic ulcer of other part of left lower leg limited to breakdown of skin; M12.572 Traumatic arthropathy, left ankle and foot; E78.5 Hyperlipidemia, unspecified; I10 Essential (primary) hypertension; L40.50 Arthropathic psoriasis, unspecified; M45.9 Ankylosing spondylitis of unspecified sites in spine; F32.9 Major depressive disorder, single episode, unspecified; Z79.82 Long term (current) use of aspirin; Z79.899 Other long term (current) drug therapy; Z90.49 Acquired absence of other specified parts of digestive tract; Z86.718 Personal history of other venous thrombosis and embolism; Z88.0 Allergy status to penicillin; Z88.8 Allergy status to other drugs, medicaments and biological substances; Z20.822 Contact with and (suspected) exposure to COVID-19; Z91.040 Latex allergy status; W22.8XXD Striking against or struck by other objects, subsequent encounter | CPT/HCPCS: G0463; Z7500 ==

== ENCOUNTER → 2021-01-21 | Outpatient (CLI) | payer MEDICARE, MEDICAID | END | disposition home or self-care (01) | LOC: HBOWC 09:25 | PROVIDERS: ATTEND Nurse Practitioner Adult Health | DX: S91.002D Unspecified open wound, left ankle, subsequent encounter (principal); L97.821 Non-pressure chronic ulcer of other part of left lower leg limited to breakdown of skin; M12.572 Traumatic arthropathy, left ankle and foot; E78.5 Hyperlipidemia, unspecified; I10 Essential (primary) hypertension; M45.9 Ankylosing spondylitis of unspecified sites in spine; F43.10 Post-traumatic stress disorder, unspecified; F32.9 Major depressive disorder, single episode, unspecified; L40.59 Other psoriatic arthropathy; Z79.82 Long term (current) use of aspirin; Z79.899 Other long term (current) drug therapy; Z90.49 Acquired absence of other specified parts of digestive tract; Z86.718 Personal history of other venous thrombosis and embolism; Z88.0 Allergy status to penicillin; Z88.8 Allergy status to other drugs, medicaments and biological substances; Z20.822 Contact with and (suspected) exposure to COVID-19; Z91.040 Latex allergy status; W22.8XXD Striking against or struck by other objects, subsequent encounter | CPT/HCPCS: G0463 ==

== ENCOUNTER → 2021-01-28 | Outpatient (CLI) | payer MEDICARE, MEDICAID | END | disposition home or self-care (01) | LOC: HBOWC 09:21 | PROVIDERS: ATTEND Nurse Practitioner Adult Health | DX: S91.002D Unspecified open wound, left ankle, subsequent encounter (principal); L97.821 Non-pressure chronic ulcer of other part of left lower leg limited to breakdown of skin; M12.572 Traumatic arthropathy, left ankle and foot; E78.5 Hyperlipidemia, unspecified; I10 Essential (primary) hypertension; M45.9 Ankylosing spondylitis of unspecified sites in spine; F43.10 Post-traumatic stress disorder, unspecified; F32.9 Major depressive disorder, single episode, unspecified; L40.59 Other psoriatic arthropathy; Z79.82 Long term (current) use of aspirin; Z79.899 Other long term (current) drug therapy; Z90.49 Acquired absence of other specified parts of digestive tract; Z86.718 Personal history of other venous thrombosis and embolism; Z88.0 Allergy status to penicillin; Z88.8 Allergy status to other drugs, medicaments and biological substances; Z20.822 Contact with and (suspected) exposure to COVID-19; Z91.040 Latex allergy status; W22.8XXD Striking against or struck by other objects, subsequent encounter | CPT/HCPCS: G0463; Z7500 ==

== ENCOUNTER → 2021-02-03 | Outpatient (CLI) | payer MEDICARE, MEDICAID ==
[~2021-02-03] MED LIST changes: +LIDOCAINE 4% 50 ML SOLUTION TP ONE
== END | disposition home or self-care (01) ==
LOC: HBOWC 10:02
PROVIDERS: ATTEND Surgery Plastic and Reconstructive Surgery
DX: S91.002D Unspecified open wound, left ankle, subsequent encounter (principal); L97.821 Non-pressure chronic ulcer of other part of left lower leg limited to breakdown of skin; M12.572 Traumatic arthropathy, left ankle and foot; I10 Essential (primary) hypertension; E78.5 Hyperlipidemia, unspecified; L40.50 Arthropathic psoriasis, unspecified; M45.9 Ankylosing spondylitis of unspecified sites in spine; F32.9 Major depressive disorder, single episode, unspecified; Z79.82 Long term (current) use of aspirin; Z90.49 Acquired absence of other specified parts of digestive tract; Z90.89 Acquired absence of other organs; W22.8XXD Striking against or struck by other objects, subsequent encounter
CPT/HCPCS: 11043; 11046; G0463

== ENCOUNTER → 2021-02-10 | Outpatient (CLI) | payer MEDICARE, MEDICAID ==
[~2021-02-10] MED LIST changes: +LIDOCAINE 2% 5 ML JELLY TP ONE; -LIDOCAINE 4% 50 ML SOLUTION TP ONE
== END | disposition home or self-care (01) ==
LOC: HBOWC 09:55
PROVIDERS: ATTEND Surgery Plastic and Reconstructive Surgery
DX: S91.002D Unspecified open wound, left ankle, subsequent encounter (principal); L97.821 Non-pressure chronic ulcer of other part of left lower leg limited to breakdown of skin; M12.572 Traumatic arthropathy, left ankle and foot; L40.50 Arthropathic psoriasis, unspecified; E78.5 Hyperlipidemia, unspecified; M45.9 Ankylosing spondylitis of unspecified sites in spine; I10 Essential (primary) hypertension; F32.9 Major depressive disorder, single episode, unspecified; Z86.718 Personal history of other venous thrombosis and embolism; Z79.82 Long term (current) use of aspirin; Z79.899 Other long term (current) drug therapy; Z90.89 Acquired absence of other organs; Z90.49 Acquired absence of other specified parts of digestive tract; X58.XXXD Exposure to other specified factors, subsequent encounter
CPT/HCPCS: 11043; 11046; G0463

== ENCOUNTER → 2021-02-24 | Outpatient (CLI) | payer MEDICARE, MEDICAID ==
[~2021-02-24] MED LIST changes: -LIDOCAINE 2% 5 ML JELLY TP ONE; +LIDOCAINE 4% 50 ML SOLUTION TP ONE
== END | disposition home or self-care (01) ==
LOC: HBOWC 09:33
PROVIDERS: ATTEND Surgery Plastic and Reconstructive Surgery
DX: S91.002D Unspecified open wound, left ankle, subsequent encounter (principal); L97.825 Non-pressure chronic ulcer of other part of left lower leg with muscle involvement without evidence of necrosis; M12.572 Traumatic arthropathy, left ankle and foot; L40.50 Arthropathic psoriasis, unspecified; E78.5 Hyperlipidemia, unspecified; M45.9 Ankylosing spondylitis of unspecified sites in spine; I10 Essential (primary) hypertension; F32.9 Major depressive disorder, single episode, unspecified; F43.10 Post-traumatic stress disorder, unspecified; Z86.718 Personal history of other venous thrombosis and embolism; Z79.82 Long term (current) use of aspirin; Z79.899 Other long term (current) drug therapy; Z90.89 Acquired absence of other organs; Z90.49 Acquired absence of other specified parts of digestive tract; Z88.8 Allergy status to other drugs, medicaments and biological substances; Z88.0 Allergy status to penicillin; Z91.040 Latex allergy status; Z20.822 Contact with and (suspected) exposure to COVID-19; W22.8XXD Striking against or struck by other objects, subsequent encounter
CPT/HCPCS: 11043; 11046; G0463

== ENCOUNTER → 2021-03-09 | Outpatient (CLI) | payer MEDICARE, MEDICAID ==
[~2021-03-09] MED LIST changes: -LIDOCAINE 4% 50 ML SOLUTION TP ONE
== END | disposition home or self-care (01) ==
LOC: HBOWC 09:16
PROVIDERS: ATTEND Emergency Medicine
DX: S91.002D Unspecified open wound, left ankle, subsequent encounter (principal); L97.821 Non-pressure chronic ulcer of other part of left lower leg limited to breakdown of skin; M12.572 Traumatic arthropathy, left ankle and foot; L40.50 Arthropathic psoriasis, unspecified; E78.5 Hyperlipidemia, unspecified; M45.9 Ankylosing spondylitis of unspecified sites in spine; I10 Essential (primary) hypertension; F32.9 Major depressive disorder, single episode, unspecified; F43.10 Post-traumatic stress disorder, unspecified; Z86.718 Personal history of other venous thrombosis and embolism; Z79.82 Long term (current) use of aspirin; Z79.899 Other long term (current) drug therapy; Z90.89 Acquired absence of other organs; Z90.49 Acquired absence of other specified parts of digestive tract; Z88.8 Allergy status to other drugs, medicaments and biological substances; Z88.0 Allergy status to penicillin; Z91.040 Latex allergy status; Z20.822 Contact with and (suspected) exposure to COVID-19; W22.8XXD Striking against or struck by other objects, subsequent encounter
CPT/HCPCS: 11042; 11045; 97597; G0463

== ENCOUNTER → 2021-04-09 | Outpatient (CLI) | payer MEDICARE, MEDICAID ==
[~2021-04-09] MED LIST changes: +POTA-206 PO; -POTA20TA83 PO
== END | disposition home or self-care (01) ==
LOC: HBOWC 08:49
PROVIDERS: ATTEND Podiatrist
DX: S91.002D Unspecified open wound, left ankle, subsequent encounter (principal); L97.822 Non-pressure chronic ulcer of other part of left lower leg with fat layer exposed; M12.572 Traumatic arthropathy, left ankle and foot; M45.9 Ankylosing spondylitis of unspecified sites in spine; I10 Essential (primary) hypertension; E78.5 Hyperlipidemia, unspecified; L40.50 Arthropathic psoriasis, unspecified; E66.9 Obesity, unspecified; F32.9 Major depressive disorder, single episode, unspecified; Z68.35 Body mass index [BMI] 35.0-35.9, adult; Z86.718 Personal history of other venous thrombosis and embolism; Z90.89 Acquired absence of other organs; Z90.49 Acquired absence of other specified parts of digestive tract; W22.8XXD Striking against or struck by other objects, subsequent encounter
CPT/HCPCS: G0463; Z7500